=== PATIENT | female | born 1975 | race Caucasian/White ===

== ENCOUNTER 2021-04-26 17:28 | Emergency (ER) | payer BC ==
[2021-04-26] MEDS ORDERED: predniSONE 20 MG TAB ONE (18:38)
== END 2021-04-26 18:53 | disposition home or self-care (01) ==
LOC: NAV ERS 17:28
DX: J40 Bronchitis, not specified as acute or chronic (principal)
CPT/HCPCS: 87081; 87430; 99283; J7512

== ENCOUNTER 2021-12-30 19:42 | Emergency (ER) | payer BC | END 2021-12-30 21:03 | disposition home or self-care (01) | LOC: NAV ERS 19:42 | DX: S93.402A Sprain of unspecified ligament of left ankle, initial encounter (principal); X50.1XXA Overexertion from prolonged static or awkward postures, initial encounter; Y93.01 Activity, walking, marching and hiking ==

== ENCOUNTER 2022-10-26 06:24 | Emergency (ER) | payer BC ==
[2022-10-26] MEDS ORDERED: Ondansetron ODT 4 MG TAB ONE (06:35)
[2022-10-26] MEDS ORDERED: Fentanyl 100 MCG/2 ML VIAL ONE (07:17)
[2022-10-26 07:18] LABS: #Eosinphils 0.1 thou/uL (0.0-0.7); #Lymphocytes 1.9 thou/uL (1.20-3.40); #Monocytes 0.5 thou/uL (0.11-0.59); #Neutrophils 3.9 thou/uL (1.40-6.50); %Basophils 0.6 % (0.0-1.0); %Eosinophils 1.3 % (0.0-10.0); %Lymphocytes 30.2 % (21.0-51.0); %Monocytes 7.1 % (0.0-10.0); %Neutrophils 60.8 % (42.0-75.0); Mean Corpuscular HGB CONC 34.4 g/dL (32.0-36.0); Mean Corpuscular Hemoglobin 31.9 pg (27.0-31.0); Mean Corpuscular Volume 92.8 fl (78.0-98.0); Mean Platelet Volume 6.4 fL (7.4-10.4); Platelet Count 193 10x3/uL (130-400); RBC Distribution Width 10.7 % (11.5-14.5); Red Blood Cell (RBC) Count 4.07 mill/uL (4.20-5.40); White Blood Cell (WBC) Count 6.4 10x3/uL (4.8-10.8)
[2022-10-26] MEDS ORDERED: Aspirin Chewable 81 MG TAB ONE (07:18)
[2022-10-26 07:34] LABS: BHCG - Serum Negative (NEGATIVE); Pregs Control Bar Appear? YES (CONTROL BAR)
[2022-10-26 07:37] LABS: ALT (SGPT) 29 U/L (8-55); AST (SGOT) 20 U/L (5-34); Albumin 4.6 g/dL (3.5-5.0); Alkaline Phosphatase 77 U/L (40-110); Anion Gap 13 mmol/L (10-20); BUN (Urea Nitrogen) 11 mg/dL (7.0-18.7); Bilirubin, Total 0.4 mg/dL (0.2-1.2); Calc. Creatinine Clearance 0 mL/min (70-130); Calcium 10.3 mg/dL (7.8-10.44); Carbon Dioxide 23 mmol/L (22-29); Chloride 106 mmol/L (98-107); Estimated GFR 98; Globulin 3.1 g/dL (2.4-3.5); Glucose 103 mg/dL (70-105); Magnesium 2.1 mg/dL (1.6-2.6); Potassium 3.9 mmol/L (3.5-5.1); Protein, Total 7.7 g/dL (6.0-8.3); Sodium 138 mmol/L (136-145)
[2022-10-26] MEDS ORDERED: Morphine 4 MG/ML VIAL ONE (08:47)
== END 2022-10-26 11:19 | disposition home or self-care (01) ==
LOC: NAV ERS 06:24
DX: R68.84 Jaw pain (principal); R11.2 Nausea with vomiting, unspecified
CPT/HCPCS: 71045; 80053; 83735; 84484; 84703; 85025; 85379; 93005; 96374; 96375; J2270; J3010; Q0162

== ENCOUNTER 2022-10-27 13:17 | Emergency (ER) | payer BC ==
[2022-10-27] MEDS ORDERED: Pantoprazole 40 MG VIAL ONE (14:01)
[2022-10-27] MEDS ORDERED: Clindamycin/D5W 900 mg/50 ml Premix Bag ONE (14:01)
[2022-10-27] MEDS ORDERED: Sodium Chloride 0.9% 1,000 ML ONE (14:01)
[2022-10-27] MEDS ORDERED: Famotidine/PF 20 mg/2ml Vial ONE (14:01)
[2022-10-27] MEDS ORDERED: Promethazine HCl 25 MG/ML VIAL ONE (14:01)
[2022-10-27 14:25] LABS: Anion Gap 14 mmol/L (10-20); BUN (Urea Nitrogen) 13 mg/dL (7.0-18.7); Calc. Creatinine Clearance 0 mL/min (70-130); Calcium 11.2 mg/dL (7.8-10.44); Carbon Dioxide 25 mmol/L (22-29); Chloride 105 mmol/L (98-107); Estimated GFR 84; Glucose 110 mg/dL (70-105); Potassium 4.4 mmol/L (3.5-5.1); Sodium 140 mmol/L (136-145)
== END 2022-10-27 16:45 | disposition home or self-care (01) ==
LOC: NAV ERS 13:17
DX: K29.00 Acute gastritis without bleeding (principal); K04.4 Acute apical periodontitis of pulpal origin
CPT/HCPCS: 80048; 96374; 96375; C9113; J2550; J3490; J7050; S0028

== ENCOUNTER 2022-10-30 17:12 | Emergency (ER) | payer BC ==
[~2022-10-30 17:12] MED LIST: Iopamidol 370 76% 100 ML VIAL ONE
[2022-10-30] MEDS ORDERED: Ketorolac Tromethamine 30 MG/ML VIAL ONE (17:46)
[2022-10-30] MEDS ORDERED: Amoxicillin/Potassium Clav 875 MG TAB ONE (19:02)
== END 2022-10-30 19:04 | disposition home or self-care (01) ==
LOC: NAV ERS 17:12
DX: K04.7 Periapical abscess without sinus (principal)
CPT/HCPCS: 70487; 96374; J1885; Q9967